=== PATIENT | female | born 1975 | race Two or more races ===

== ENCOUNTER 2019-02-15 18:13 | Inpatient (IN) | payer MEDICAID ==
[~2019-02-15] VITALS: Ht 160 cm; Wt 60.8 kg
[2019-02-15] MEDS ORDERED: METF500T17 PO (19:00)
[2019-02-15] MEDS ORDERED: INSU100V8 SQ (19:00)
[2019-02-15] MEDS ORDERED: LOSA25TA25 PO (19:01)
--- NOTE | 2019-02-15 19:10 | NUR ---
received report from KORI Oconnell
[2019-02-15 19:11] LABS: BASOPHILS # (AUTO) 0.02 x10^3/uL (0-0.1); BASOPHILS % (AUTO) 0 % (0-1); EOSINOPHILS % (AUTO) 3 % (1-7); LYMPHOCYTES # (AUTO) 1.34 x10^3/uL (1-3.4); LYMPHOCYTES % (AUTO) 22 % (22-44); MD NO; MEAN CORPUSCULAR HEMOGLOBIN 24.6 pg (27.0-34.8); MEAN CORPUSCULAR HGB CONC 32.2 g/dL (32.4-35.8); MEAN CORPUSCULAR VOLUME 76.4 fL (80-100); MEAN PLATELET VOLUME 8.1 fL (7.4-10.4); MONOCYTES # (AUTO) 0.44 x10^3/uL (0.2-0.8); MONOCYTES % (AUTO) 7 % (2-9); NEUTROPHILS # (AUTO) 4.14 x10^3/uL (1.8-6.8); NEUTROPHILS % (AUTO) 67 % (42-75); PLATELET COUNT 238 x10^3/uL (130-400); RED BLOOD COUNT 3.22 x10^6/uL (3.82-5.3); RED CELL DISTRIBUTION WIDTH 18.3 % (9.6-15.2)
--- NOTE | 2019-02-15 19:15 | NUR ---
patient to ultrasound.
[2019-02-15 19:23] LABS: ALANINE AMINOTRANSFERASE 16 U/L (12-78); ALBUMIN 2.7 g/dL (3.4-5.0); ANION GAP 6 mmol/L (5-15); CALCIUM 8.1 mg/dL (8.5-10.1); CHLORIDE 113 mmol/L (98-107); CREATININE 1.24 mg/dL (0.55-1.02)
[2019-02-15 19:27] LABS: ALKALINE PHOSPHATASE 54 U/L (45-117); BILIRUBIN,TOTAL 0.3 mg/dL (0.2-1.0); TOTAL PROTEIN 6.6 g/dL (6.4-8.2); TROPONIN I 0.038 ng/mL (0.000-0.045)
[2019-02-15] MEDS ORDERED: FURO-93 PO (19:56)
[2019-02-15] MEDS ORDERED: POTA20PA25 PO ×2 (19:57→23:37)
[2019-02-15] MEDS ORDERED: NITROGLYCERIN OINT 2%, 1GM TP ONE ×2 (20:47→21:00)
[2019-02-15] MEDS ORDERED: FUROSEMIDE 20 MG/2 ML ONE (20:48)
[2019-02-15] MEDS ORDERED: FUROSEMIDE 20 MG/2 ML IV ONE (21:00)
--- NOTE | 2019-02-15 21:06 | NUR ---
patient medicated. crackers and juice provided. admission orders made. bed requested.
--- NOTE | 2019-02-15 21:44 | NUR ---
bed assigned. report to KORI Julio.
[2019-02-15] MEDS ORDERED: ACETAMINOPHEN 325 MG TABLET PO PRN (22:30)
[2019-02-15] MEDS ORDERED: ONDANSETRON ODT 4 MG PO PRN (22:30)
[2019-02-15] MEDS ORDERED: HEPARIN 5,000 UNITS/ML, 1ML SQ SCH (22:30)
[2019-02-15] MEDS ORDERED: DOCUSATE 100 MG CAPSULE PO PRN (22:30)
[2019-02-15] MEDS ORDERED: TEMAZEPAM 15 MG CAPSULE PO PRN (22:30)
[2019-02-15] MEDS ORDERED: LIDODERM 5% PATCH TD PRN (22:30)
[2019-02-15] MEDS ORDERED: GABA600T7 PO (22:42)
[2019-02-15 22:59] VITALS: BP 176/86
[2019-02-15] MEDS: INSULIN GLARGINE 100 UNITS/ML, PEN SQ-INSULIN SCH (23:00)
[2019-02-15] MEDS: GABAPENTIN 300 MG CAPSULE PO SCH (23:51)
[2019-02-16] MEDS: LABETALOL 5 MG/ML SYRINGE IVPush PRN (00:34)
[2019-02-16 00:35] VITALS: BP 178/86
[2019-02-16 00:48] VITALS: BP 142/64
[2019-02-16 01:31] VITALS: BP 148/70
[2019-02-16 01:33] LABS: TROPONIN I 0.044 ng/mL (0.000-0.045)
[2019-02-16] MEDS: INSULIN LISPRO 100 UNITS/ML, PEN SQ-INSULIN SCH ×8 (07:00→20:30)
[2019-02-16] MEDS ORDERED: DEXTROSE 4 GM TAB.CHEW PO PRN (07:00)
[2019-02-16] MEDS ORDERED: DEXTROSE 50%, 50ML SYRINGE IVPush PRN (07:00)
[2019-02-16] MEDS ORDERED: GLUCAGON 1 MG IM PRN (07:00)
[2019-02-16] MEDS ORDERED: FUROSEMIDE 20 MG/2 ML IV SCH (07:30)
[2019-02-16 07:55] LABS: ANION GAP 6 mmol/L (5-15); CHLORIDE 115 mmol/L (98-107); CREATININE 1.23 mg/dL (0.55-1.02)
[2019-02-16 07:59] LABS: TROPONIN I 0.033 ng/mL (0.000-0.045)
[2019-02-16] MEDS ORDERED: LOSARTAN 25MG TABLET PO SCH (09:00)
[2019-02-16] MEDS: SODIUM CHLORIDE FLUSH 10ML SYR IVF SCH ×2 (09:00→20:27)
[2019-02-16] MEDS ORDERED: POTASSIUM CHLORIDE 20 MEQ PACKET PO SCH (09:00)
[2019-02-16 09:36] LABS: MEAN CORPUSCULAR HEMOGLOBIN 24.2 pg (27.0-34.8); MEAN CORPUSCULAR HGB CONC 31.8 g/dL (32.4-35.8); MEAN PLATELET VOLUME 8.5 fL (7.4-10.4); PLATELET COUNT 240 x10^3/uL (130-400); RED CELL DISTRIBUTION WIDTH 18.5 % (9.6-15.2)
[2019-02-16 10:15] VITALS: BP 148/64
[2019-02-16] MEDS ORDERED: FUROSEMIDE 20 MG/2 ML IV ONE (11:00)
[2019-02-16 11:08] LABS: BASOPHILS # (AUTO) 0.01 x10^3/uL (0-0.1); BASOPHILS % (AUTO) 0 % (0-1); EOSINOPHILS # (AUTO) 0.14 x10^3/uL (0-0.4); EOSINOPHILS % (AUTO) 3 % (1-7); LYMPHOCYTES # (AUTO) 0.99 x10^3/uL (1-3.4); LYMPHOCYTES % (AUTO) 19 % (22-44); MD MORPH REVIEW ONLY; MONOCYTES # (AUTO) 0.28 x10^3/uL (0.2-0.8); MONOCYTES % (AUTO) 6 % (2-9); NEUTROPHILS # (AUTO) 3.67 x10^3/uL (1.8-6.8); NEUTROPHILS % (AUTO) 72 % (42-75)
[2019-02-16 11:12] LABS: ANISOCYTOSIS 1+; HYPOCHROMIA 1+; MICROCYTOSIS 1+; OVALOCYTES 1+
[2019-02-16 11:13] LABS: <PLATELET ESTIMATE> ADEQUATE; <PLT MORPHOLOGY> NORMAL PLT MORPH; SCHISTOCYTES 1+
[2019-02-16] MEDS: GABAPENTIN 300 MG CAPSULE PO SCH ×3 (11:23→20:27)
[2019-02-16 13:40] VITALS: BP 168/80
[2019-02-16] MEDS: INSULIN GLARGINE 100 UNITS/ML, PEN SQ-INSULIN SCH (20:30)
[2019-02-16 21:08] VITALS: BP 169/81
[2019-02-17 00:46] VITALS: BP 169/86
[2019-02-17 05:25] LABS: % IRON SATURATION 7 % (20-55); ANION GAP 3 mmol/L (5-15); CHLORIDE 114 mmol/L (98-107); CREATININE 1.26 mg/dL (0.55-1.02); IRON LEVEL 20 mcg/dL (50-170); TOTAL IRON BINDING CAPACITY 301 mcg/dL (250-450)
[2019-02-17 05:29] LABS: TRANSFERRIN 239 mg/dL (200-360)
[2019-02-17 06:00] LABS: MEAN CORPUSCULAR HEMOGLOBIN 24.4 pg (27.0-34.8); MEAN CORPUSCULAR HGB CONC 31.9 g/dL (32.4-35.8); MEAN CORPUSCULAR VOLUME 76.4 fL (80-100); MEAN PLATELET VOLUME 8.8 fL (7.4-10.4); PLATELET COUNT 229 x10^3/uL (130-400); RED BLOOD COUNT 2.91 x10^6/uL (3.82-5.3); RED CELL DISTRIBUTION WIDTH 18.2 % (9.6-15.2)
[2019-02-17 06:01] LABS: BASOPHILS # (AUTO) 0.01 x10^3/uL (0-0.1); BASOPHILS % (AUTO) 0 % (0-1); EOSINOPHILS # (AUTO) 0.17 x10^3/uL (0-0.4); EOSINOPHILS % (AUTO) 3 % (1-7); LYMPHOCYTES # (AUTO) 1.47 x10^3/uL (1-3.4); LYMPHOCYTES % (AUTO) 29 % (22-44); MD SCAN; MONOCYTES % (AUTO) 10 % (2-9); NEUTROPHILS # (AUTO) 2.96 x10^3/uL (1.8-6.8); NEUTROPHILS % (AUTO) 58 % (42-75)
[2019-02-17] MEDS ORDERED: SODIUM POLYSTYRENE SULFONATE ORAL SUSP PO ONE (07:00)
[2019-02-17] MEDS: INSULIN LISPRO 100 UNITS/ML, PEN SQ-INSULIN SCH ×3 (07:00→12:05)
[2019-02-17] MEDS ORDERED: FUROSEMIDE 20 MG/2 ML IV SCH (07:30)
[2019-02-17 07:39] VITALS: BP 166/86
[2019-02-17] MEDS ORDERED: REGADENOSON 0.4 MG/5 ML SYRINGE ONE (08:53)
[2019-02-17] MEDS ORDERED: AMLODIPINE 10 MG TAB PO SCH (09:00)
[2019-02-17] MEDS: GABAPENTIN 300 MG CAPSULE PO SCH (11:29)
[2019-02-17] MEDS: SODIUM CHLORIDE FLUSH 10ML SYR IVF SCH (11:29)
[2019-02-17 12:18] VITALS: BP 184/85
[2019-02-17] MEDS: LABETALOL 5 MG/ML SYRINGE IVPush PRN (13:02)
[2019-02-17 14:27] LABS: ANION GAP 8 mmol/L (5-15); CALCIUM 8.1 mg/dL (8.5-10.1); CHLORIDE 110 mmol/L (98-107); CREATININE 1.19 mg/dL (0.55-1.02)
[2019-02-17] MEDS ORDERED: INSU100V8 SQ (15:38)
[2019-02-17] MEDS ORDERED: CHLO25TA PO (15:38)
[2019-02-17] MEDS ORDERED: AMLO10TA8 PO (15:38)
[2019-02-17] MEDS ORDERED: FERR324T5 PO (15:38)
[2019-02-17] MEDS ORDERED: INSULIN GLARGINE 100 UNITS/ML, PEN SQ-INSULIN SCH (21:00)
[2019-02-18] MEDS ORDERED: CHLORTHALIDONE 25 MG TABLET PO SCH (09:00)
== END 2019-02-17 17:01 | disposition home or self-care (01) | DRG 300 ==
LOC: ED 19:46 → MERGE 19:46 → EDIP 21:03 → 5SO 22:02
PROVIDERS: ADMIT Family Medicine; ATTEND Family Medicine
DX: I87.2 Venous insufficiency (chronic) (peripheral) (principal); N17.9 Acute kidney failure, unspecified; I16.0 Hypertensive urgency; I12.9 Hypertensive chronic kidney disease with stage 1 through stage 4 chronic kidney disease, or unspecified chronic kidney disease; D50.0 Iron deficiency anemia secondary to blood loss (chronic); E11.22 Type 2 diabetes mellitus with diabetic chronic kidney disease; N18.9 Chronic kidney disease, unspecified; E11.40 Type 2 diabetes mellitus with diabetic neuropathy, unspecified; E11.69 Type 2 diabetes mellitus with other specified complication; E78.5 Hyperlipidemia, unspecified; N28.89 Other specified disorders of kidney and ureter; E87.5 Hyperkalemia; K59.00 Constipation, unspecified; Z79.4 Long term (current) use of insulin; Z91.14 Patient's other noncompliance with medication regimen; Z87.891 Personal history of nicotine dependence; Z83.3 Family history of diabetes mellitus
CPT/HCPCS: 36415; 71046; 76770; 78452; 80048; 80053; 82728; 82962; 83540; 83550; 83880; 84466; 84484; 84703; 85014; 85018; 85025; 93005; 93017; 93306; 93970; 96374; 99291; G0378; J1644; J2785; A9502; C9898; J1815; J1940

== ENCOUNTER 2019-05-23 23:53 | Inpatient (IN) | payer MEDICAID ==
[~2019-05-23] VITALS: Ht 160 cm; Wt 61.0 kg
[~2019-05-23 23:53] MED LIST: AMLO10TA8 PO; CHLO25TA PO; FERR324T5 PO; FURO-93 PO; GABA600T7 PO; INSU100V8 SQ; LOSA25TA25 PO; METF500T17 PO; POTA20PA25 PO
--- NOTE | 2019-05-24 00:16 | NUR ---
PT STATES THAT SHE IS HAVING LEFT SIDED BURNING AND TINGLING IN HER LEFT LEG SINCE MONDAY. PT DENIES ANY TRAUMA OR KNOWN INJURIES. MONITORS APPLIED, SIDERAILS UP X2, CALL LIGHT WITHIN REACH
[2019-05-24] MEDS ORDERED: ATOR10TA9 PO (00:23)
[2019-05-24] MEDS ORDERED: ACETAMINOPHEN 325 MG TABLET ONE (00:30)
[2019-05-24] MEDS ORDERED: ACETAMINOPHEN 325 MG TABLET PO ONE (00:30)
--- NOTE | 2019-05-24 00:35 | NUR ---
PT MEDICATED PER MAR
[2019-05-24 00:50] LABS: BASOPHILS # (AUTO) 0.02 x10^3/uL (0-0.1); BASOPHILS % (AUTO) 0 % (0-1); EOSINOPHILS # (AUTO) 0.18 x10^3/uL (0-0.4); EOSINOPHILS % (AUTO) 3 % (1-7); LYMPHOCYTES # (AUTO) 0.88 x10^3/uL (1-3.4); LYMPHOCYTES % (AUTO) 14 % (22-44); MD NO; MEAN CORPUSCULAR HEMOGLOBIN 30.6 pg (27.0-34.8); MEAN CORPUSCULAR HGB CONC 33.8 g/dL (32.4-35.8); MEAN CORPUSCULAR VOLUME 90.5 fL (80-100); MEAN PLATELET VOLUME 8.4 fL (7.4-10.4); MONOCYTES # (AUTO) 0.34 x10^3/uL (0.2-0.8); MONOCYTES % (AUTO) 5 % (2-9); NEUTROPHILS # (AUTO) 5.03 x10^3/uL (1.8-6.8); NEUTROPHILS % (AUTO) 78 % (42-75); PLATELET COUNT 222 x10^3/uL (130-400); RED BLOOD COUNT 3.45 x10^6/uL (3.82-5.3); RED CELL DISTRIBUTION WIDTH 14.4 % (9.6-15.2)
[2019-05-24 00:54] LABS: INTERNATIONAL NORMALIZED RATIO 0.87 (0.93-1.1); PROTHROMBIN TIME 9.2 Seconds (9.6-11.5)
[2019-05-24 00:56] LABS: ALANINE AMINOTRANSFERASE 15 U/L (12-78); ALBUMIN 2.2 g/dL (3.4-5.0); ANION GAP 8 mmol/L (5-15); CALCIUM 8.1 mg/dL (8.5-10.1); CHLORIDE 101 mmol/L (98-107); CREATININE 3.19 mg/dL (0.55-1.02)
[2019-05-24 01:00] LABS: ALKALINE PHOSPHATASE 75 U/L (45-117); BILIRUBIN,TOTAL 0.2 mg/dL (0.2-1.0); TOTAL PROTEIN 5.9 g/dL (6.4-8.2)
--- NOTE | 2019-05-24 01:07 | NUR ---
Break RN: back from X ray. urine sample obtained and sent to lab.
--- NOTE | 2019-05-24 01:08 | NUR ---
ERP at bedside.
[2019-05-24 01:14] LABS: CULTURE INDICATED? YES; HCG UR SG 1.014 (1.003-1.030); MICROSCOPIC AUTO
[2019-05-24] MEDS ORDERED: NITROGLYCERIN OINT 2%, 1GM TP ONE ×2 (01:20→01:30)
--- NOTE | 2019-05-24 01:22 | NUR ---
IV placed. IVF hung. nitro given.
[2019-05-24] MEDS ORDERED: LABETALOL 5MG/ML, 20ML ONE (01:29)
[2019-05-24] MEDS ORDERED: CEFTRIAXONE PMX 1GM/50ML 50 ML ONE (01:29)
[2019-05-24] MEDS ORDERED: CEFTRIAXONE PMX 1GM/50ML 50 ML IVPB ONE (01:30)
[2019-05-24] MEDS ORDERED: SODIUM CHLORIDE FLUSH 10ML SYR IVF ONE (01:30)
[2019-05-24] MEDS ORDERED: LABETALOL 5MG/ML, 20ML IVPush ONE (01:30)
[2019-05-24] MEDS ORDERED: SODIUM CHLORIDE 0.9% 1,000ML IVBOLUS ONE (01:30)
[2019-05-24 01:35] LABS: TROPONIN I < 0.015 ng/mL (0.000-0.045)
--- NOTE | 2019-05-24 01:40 | NUR ---
pt medicated per mar
--- NOTE | 2019-05-24 01:43 | NUR ---
pt to ultrasound
[2019-05-24] MEDS ORDERED: SODIUM CHLORIDE 0.9% 1,000 ML IV ONE (01:50)
[2019-05-24] MEDS ORDERED: INSULIN REGULAR 100 UNITS/ML, 3ML VIAL SQ-INSULIN SCH (02:00)
[2019-05-24] MEDS ORDERED: INSULIN SINGLE DOSE, ER SQ-INSULIN ONE (02:32)
[2019-05-24] MEDS ORDERED: ACETAMINOPHEN 325 MG TABLET PO PRN (03:00)
[2019-05-24] MEDS: SODIUM CHLORIDE 0.9% 1,000 ML IV SCH ×3 (03:07→23:34)
[2019-05-24 03:16] VITALS: BP 165/80
[2019-05-24 03:40] LABS: HEMOGLOBIN A1C 9.1 % (4.2-6.3)
[2019-05-24] MEDS: INSULIN GLARGINE 100 UNITS/ML, PEN SQ-INSULIN SCH ×2 (03:54→20:10)
[2019-05-24] MEDS: INSULIN LISPRO 100 UNITS/ML, PEN SQ-INSULIN SCH ×4 (07:00→20:51)
[2019-05-24 07:05] VITALS: BP 150/71
[2019-05-24 07:56] LABS: CREATININE,URINE RANDOM 24.4 mg/dL
[2019-05-24] MEDS: FERROUS SULFATE 325 MG TABLET PO SCH ×2 (07:59→16:40)
[2019-05-24] MEDS: GABAPENTIN 300 MG CAPSULE PO SCH ×3 (07:59→20:10)
[2019-05-24] MEDS: AMLODIPINE 10 MG TAB PO SCH (07:59)
[2019-05-24] MEDS ORDERED: CHLORTHALIDONE 25 MG TABLET PO SCH (09:00)
[2019-05-24 09:23] LABS: HCT (SEDRATE) 29.9 % (34.6-47.8)
[2019-05-24 09:35] LABS: ANION GAP 5 mmol/L (5-15); CALCIUM 7.9 mg/dL (8.5-10.1); CHLORIDE 113 mmol/L (98-107); CREATININE 2.61 mg/dL (0.55-1.02)
[2019-05-24 09:40] LABS: TROPONIN I < 0.015 ng/mL (0.000-0.045)
[2019-05-24] MEDS: HEPARIN 5,000 UNITS/ML, 1ML SQ SCH ×2 (11:27→23:34)
[2019-05-24 13:45] LABS: AMPHETAMINE SCREEN, URINE Negative (Negative); BARBITURATE SCREEN, URINE Negative (Negative); BENZODIAZEPINE SCREEN, URINE Negative (Negative); CANNABINOID SCREEN, URINE Negative (Negative); COCAINE SCREEN, URINE Negative (Negative); METHADONE SCREEN, URINE Negative (Negative); OPIATE SCREEN, URINE Negative (Negative)
[2019-05-24 13:46] VITALS: BP 161/86
[2019-05-24] MEDS ORDERED: HYDROcodone/APAP 5/325 TABLET PO PRN (16:30)
[2019-05-24] MEDS: HYDROcodone/APAP 5/325 TABLET PO PRN ×2 (16:40→23:38)
[2019-05-24] MEDS ORDERED: GADOBUTROL 7.5 MMOL/7.5 ML PFS ONE (19:42)
[2019-05-24 19:50] VITALS: BP 156/82
[2019-05-24] MEDS: ATORVASTATIN 10 MG TABLET PO SCH (20:09)
[2019-05-25 01:23] VITALS: BP 163/87
[2019-05-25 04:54] LABS: BASOPHILS # (AUTO) 0.02 x10^3/uL (0-0.1); BASOPHILS % (AUTO) 0 % (0-1); EOSINOPHILS # (AUTO) 0.19 x10^3/uL (0-0.4); EOSINOPHILS % (AUTO) 4 % (1-7); LYMPHOCYTES # (AUTO) 1.26 x10^3/uL (1-3.4); LYMPHOCYTES % (AUTO) 26 % (22-44); MD NO; MEAN CORPUSCULAR HEMOGLOBIN 29.5 pg (27.0-34.8); MEAN CORPUSCULAR HGB CONC 32.4 g/dL (32.4-35.8); MEAN PLATELET VOLUME 8.1 fL (7.4-10.4); MONOCYTES # (AUTO) 0.27 x10^3/uL (0.2-0.8); MONOCYTES % (AUTO) 6 % (2-9); NEUTROPHILS # (AUTO) 3.12 x10^3/uL (1.8-6.8); NEUTROPHILS % (AUTO) 64 % (42-75); PLATELET COUNT 198 x10^3/uL (130-400); RED BLOOD COUNT 3.15 x10^6/uL (3.82-5.3); RED CELL DISTRIBUTION WIDTH 14.5 % (9.6-15.2)
[2019-05-25 05:07] LABS: CHLORIDE 116 mmol/L (98-107)
[2019-05-25 05:23] LABS: ANION GAP 6 mmol/L (5-15); CALCIUM 7.7 mg/dL (8.5-10.1); CREATINE KINASE, TOTAL 169 U/L (26-192); CREATININE 2.07 mg/dL (0.55-1.02)
[2019-05-25] MEDS: INSULIN LISPRO 100 UNITS/ML, PEN SQ-INSULIN SCH ×4 (07:00→20:15)
[2019-05-25 07:10] VITALS: BP 175/88
[2019-05-25] MEDS ORDERED: CEFTRIAXONE 1,000 MG IM SCH (09:00)
[2019-05-25] MEDS: FERROUS SULFATE 325 MG TABLET PO SCH ×2 (09:41→16:29)
[2019-05-25] MEDS: AMLODIPINE 10 MG TAB PO SCH (09:42)
[2019-05-25] MEDS: ENALAPRIL 2.5MG TABLET PO SCH (09:42)
[2019-05-25] MEDS: GABAPENTIN 300 MG CAPSULE PO SCH ×3 (09:42→20:14)
[2019-05-25] MEDS: CEFTRIAXONE PMX 1GM/50ML 50 ML IV SCH (09:42)
[2019-05-25] MEDS: HYDROcodone/APAP 5/325 TABLET PO PRN (11:02)
[2019-05-25] MEDS: DULOXETINE 30 MG CAPSULE.DR PO SCH (12:34)
[2019-05-25] MEDS: HEPARIN 5,000 UNITS/ML, 1ML SQ SCH ×2 (12:34→23:30)
[2019-05-25 12:52] VITALS: BP 182/94
[2019-05-25 13:57] VITALS: BP 157/82
[2019-05-25] MEDS: ONDANSETRON 2MG/ML, 2ML IVPush PRN ×2 (16:21→20:48)
[2019-05-25] MEDS: ATORVASTATIN 10 MG TABLET PO SCH (20:14)
[2019-05-25] MEDS: INSULIN GLARGINE 100 UNITS/ML, PEN SQ-INSULIN SCH (20:15)
[2019-05-25 21:48] VITALS: BP 175/92
[2019-05-26] MEDS: HYDROcodone/APAP 5/325 TABLET PO PRN (00:11)
[2019-05-26 02:40] VITALS: BP 130/64
[2019-05-26 05:28] LABS: BASOPHILS # (AUTO) 0.03 x10^3/uL (0-0.1); BASOPHILS % (AUTO) 1 % (0-1); EOSINOPHILS # (AUTO) 0.19 x10^3/uL (0-0.4); EOSINOPHILS % (AUTO) 4 % (1-7); LYMPHOCYTES # (AUTO) 1.49 x10^3/uL (1-3.4); LYMPHOCYTES % (AUTO) 28 % (22-44); MD NO; MEAN CORPUSCULAR HEMOGLOBIN 29.4 pg (27.0-34.8); MEAN CORPUSCULAR HGB CONC 32.6 g/dL (32.4-35.8); MONOCYTES # (AUTO) 0.27 x10^3/uL (0.2-0.8); MONOCYTES % (AUTO) 5 % (2-9); NEUTROPHILS # (AUTO) 3.31 x10^3/uL (1.8-6.8); NEUTROPHILS % (AUTO) 63 % (42-75); PLATELET COUNT 212 x10^3/uL (130-400); RED BLOOD COUNT 3.01 x10^6/uL (3.82-5.3); RED CELL DISTRIBUTION WIDTH 14.6 % (9.6-15.2)
[2019-05-26 05:39] LABS: ANION GAP 7 mmol/L (5-15); CHLORIDE 113 mmol/L (98-107)
[2019-05-26 05:41] LABS: CREATININE 1.84 mg/dL (0.55-1.02)
[2019-05-26] MEDS: INSULIN LISPRO 100 UNITS/ML, PEN SQ-INSULIN SCH ×2 (07:00→11:36)
[2019-05-26 07:15] VITALS: BP 166/74
[2019-05-26] MEDS: AMLODIPINE 10 MG TAB PO SCH (08:27)
[2019-05-26] MEDS: GABAPENTIN 300 MG CAPSULE PO SCH (08:28)
[2019-05-26] MEDS: CEFTRIAXONE PMX 1GM/50ML 50 ML IV SCH (08:28)
[2019-05-26] MEDS: FERROUS SULFATE 325 MG TABLET PO SCH (08:28)
[2019-05-26] MEDS: ENALAPRIL 2.5MG TABLET PO SCH (08:28)
[2019-05-26] MEDS: DULOXETINE 30 MG CAPSULE.DR PO SCH (08:28)
[2019-05-26] MEDS: HEPARIN 5,000 UNITS/ML, 1ML SQ SCH (11:30)
[2019-05-26 13:40] VITALS: BP 162/87
[2019-05-26] MEDS ORDERED: DULO30CA2 PO (15:49)
[2019-05-26] MEDS ORDERED: CEPH-368 PO (15:49)
[2019-05-26] MEDS ORDERED: ENAL2.5T PO (15:49)
== END 2019-05-26 17:26 | disposition home or self-care (01) | DRG 74 ==
LOC: ED 05-24 00:30 → EDIP 05-24 01:59 → 4EST 05-24 03:08
PROVIDERS: ADMIT Internal Medicine; ATTEND Internal Medicine
DX: E11.40 Type 2 diabetes mellitus with diabetic neuropathy, unspecified (principal); I13.0 Hypertensive heart and chronic kidney disease with heart failure and stage 1 through stage 4 chronic kidney disease, or unspecified chronic kidney disease; N17.9 Acute kidney failure, unspecified; N12 Tubulo-interstitial nephritis, not specified as acute or chronic; E11.65 Type 2 diabetes mellitus with hyperglycemia; R53.1 Weakness; N18.9 Chronic kidney disease, unspecified; I16.0 Hypertensive urgency; B96.1 Klebsiella pneumoniae [K. pneumoniae] as the cause of diseases classified elsewhere; E11.21 Type 2 diabetes mellitus with diabetic nephropathy; E11.22 Type 2 diabetes mellitus with diabetic chronic kidney disease; E78.5 Hyperlipidemia, unspecified; I50.9 Heart failure, unspecified; M54.16 Radiculopathy, lumbar region; N28.1 Cyst of kidney, acquired; Z79.4 Long term (current) use of insulin; Z83.3 Family history of diabetes mellitus; Z98.891 History of uterine scar from previous surgery
CPT/HCPCS: 36415; 71045; 72146; 72148; 72149; 72192; 76770; 80048; 80053; 80307; 81001; 81025; 82550; 82570; 82962; 83036; 83605; 83880; 84300; 84443; 84484; 85025; 85610; 85651; 85730; 86140; 87040; 87077; 87086; 87186; 93005; 96374; 99291; A9585; G0378; J0696; J1644; J2405; J1815; J7030

== ENCOUNTER 2019-10-21 11:02 | Emergency (ER) | payer MEDICAID ==
[~2019-10-21] VITALS: Ht 162.6 cm; Wt 52.9 kg
[~2019-10-21 11:02] MED LIST changes: +ATOR10TA9 PO; +CEPH-368 PO; +DULO30CA2 PO; +ENAL2.5T PO
[2019-10-21] MEDS ORDERED: SODIUM CHLORIDE FLUSH 10ML SYR IVF ONE ×2 (11:30→12:30)
[2019-10-21 11:54] LABS: BASOPHILS # (AUTO) 0.02 x10^3/uL (0-0.1); BASOPHILS % (AUTO) 0 % (0-1); EOSINOPHILS # (AUTO) 0.05 x10^3/uL (0-0.4); EOSINOPHILS % (AUTO) 1 % (1-7); LYMPHOCYTES # (AUTO) 1.09 x10^3/uL (1-3.4); LYMPHOCYTES % (AUTO) 17 % (22-44); MD NO; MEAN CORPUSCULAR HEMOGLOBIN 30.2 pg (27.0-34.8); MEAN CORPUSCULAR VOLUME 91.5 fL (80-100); MEAN PLATELET VOLUME 8.1 fL (7.4-10.4); MONOCYTES # (AUTO) 0.25 x10^3/uL (0.2-0.8); MONOCYTES % (AUTO) 4 % (2-9); NEUTROPHILS # (AUTO) 5.06 x10^3/uL (1.8-6.8); NEUTROPHILS % (AUTO) 78 % (42-75); PH, VENOUS 7.365 pH (7.320-7.420); PLATELET COUNT 280 x10^3/uL (130-400); RED BLOOD COUNT 3.97 x10^6/uL (3.82-5.3); RED CELL DISTRIBUTION WIDTH 13.3 % (9.6-15.2)
[2019-10-21 11:56] LABS: FIO2 ROOM AIR %
--- NOTE | 2019-10-21 12:00 | NUR ---
PT HERE WITH C.O NAUSEA/VOMITTING X 1 WEEK. PT STATES NO ABDOMINAL PAIN. PT AAO X 4, NAD, ROOM AIR, DRESSED IN GOWN AND ON MONITOR. PT STATES HX DM2 AND CONTROLLED WITH INSULIN BUT FSBG AT HOME 420 AND FSBG HERE 220. PIV ESTABLISHED AND LABS DRAWN. CALL LIGHT WITHIN REACH AND AT BEDSIDE.
[2019-10-21] MEDS ORDERED: METOCLOPRAMIDE 5 MG/ML, 2ML ONE (12:11)
--- NOTE | 2019-10-21 12:14 | NUR ---
PT MEDICATED PER ORDER. PT TO XRAY.
--- NOTE | 2019-10-21 12:15 | NUR ---
PT BP 20S, MD AWARE. Addendum: 10/21/19 at 1245 marilee MEZA SBP 200S
[2019-10-21 12:16] LABS: ALBUMIN 2.4 g/dL (3.4-5.0); ANION GAP 6 mmol/L (5-15); CALCIUM 8.5 mg/dL (8.5-10.1); CHLORIDE 106 mmol/L (98-107)
[2019-10-21 12:19] LABS: ALANINE AMINOTRANSFERASE 25 U/L (12-78); ALKALINE PHOSPHATASE 76 U/L (45-117); BILIRUBIN,TOTAL 0.3 mg/dL (0.2-1.0); CREATININE 1.43 mg/dL (0.55-1.02); TOTAL PROTEIN 6.5 g/dL (6.4-8.2)
[2019-10-21] MEDS ORDERED: METOCLOPRAMIDE 5 MG/ML, 2ML IVPush ONE (12:30)
[2019-10-21] MEDS ORDERED: SODIUM CHLORIDE 0.9% 1,000ML IVBOLUS ONE (12:30)
--- NOTE | 2019-10-21 12:42 | NUR ---
PT BACK FROM XRAY, EDUCATION PROVIDED ON NEED FOR URINE SAMPLE.
[2019-10-21 12:54] LABS: ACETONE, SERUM Trace (10mg/dL) mg/dL (Negative)
--- NOTE | 2019-10-21 13:01 | NUR ---
PT MEDICATED WITH PO MEDS. PT GIVEN ICE WATER FOR PO CHALLENGE.
--- NOTE | 2019-10-21 13:15 | NUR ---
PT TOLERATED PO CHALLENGE. PT AMBULATORY TO RESTROOM WITH NO ASSISTANCE FROM STAFF, UA PROVIDED AND SENT TO LAB.
[2019-10-21 14:08] LABS: HCG UR SG 1.029 (1.003-1.030)
[2019-10-21 14:19] LABS: MICROSCOPIC INDICATED
[2019-10-21 14:22] VITALS: BP 169/81
--- NOTE | 2019-10-21 14:22 | NUR ---
ALL RESULTS BACK AT THIS TIME, CHART UP FOR RECHECK.
[2019-10-21 14:27] LABS: CULTURE INDICATED? NO
--- NOTE | 2019-10-21 15:30 | NUR ---
Patient/Caregiver given discharge instructions and they have confirmed that they understand the instructions. Patient ambulatory with steady gait.
== END 2019-10-21 15:43 | disposition home or self-care (01) ==
LOC: ED 15:00
DX: E11.65 Type 2 diabetes mellitus with hyperglycemia (principal); R11.2 Nausea with vomiting, unspecified; I11.0 Hypertensive heart disease with heart failure; I50.9 Heart failure, unspecified
CPT/HCPCS: 36415; 74021; 80053; 81001; 81025; 82010; 82803; 82962; 85025; 96361; 96374; 99284; J2765; J7030

== ENCOUNTER 2020-03-21 12:56 | Emergency (ER) | payer MEDICAID, OTHER ==
[~2020-03-21] VITALS: Ht 160 cm; Wt 57.3 kg
[2020-03-21 14:14] LABS: ALBUMIN 1.6 g/dL (3.4-5.0); ANION GAP 6 mmol/L (5-15); CHLORIDE 110 mmol/L (98-107); CREATININE 1.92 mg/dL (0.55-1.02)
[2020-03-21 14:57] LABS: MEAN CORPUSCULAR HEMOGLOBIN 25.4 pg (27.0-34.8); MEAN CORPUSCULAR HGB CONC 31.5 g/dL (32.4-35.8); MEAN CORPUSCULAR VOLUME 80.6 fL (80-100); MEAN PLATELET VOLUME 7.4 fL (7.4-10.4); PLATELET COUNT 237 x10^3/uL (130-400); RED BLOOD COUNT 2.95 x10^6/uL (3.82-5.3); RED CELL DISTRIBUTION WIDTH 14.9 % (9.6-15.2)
[2020-03-21 15:16] LABS: BASOPHILS # (AUTO) 0.01 x10^3/uL (0-0.1); BASOPHILS % (AUTO) 0 % (0-1); EOSINOPHILS # (AUTO) 0.12 x10^3/uL (0-0.4); EOSINOPHILS % (AUTO) 2 % (1-7); LYMPHOCYTES # (AUTO) 0.88 x10^3/uL (1-3.4); LYMPHOCYTES % (AUTO) 17 % (22-44); MD SCAN; MONOCYTES # (AUTO) 0.28 x10^3/uL (0.2-0.8); MONOCYTES % (AUTO) 6 % (2-9); NEUTROPHILS # (AUTO) 3.83 x10^3/uL (1.8-6.8); NEUTROPHILS % (AUTO) 75 % (42-75)
--- NOTE | 2020-03-21 15:38 | NUR ---
OPTHAMOLOGY TO SEE PT, RETINAL DILATING DROPS ORDERED FROM PHARMACY
[2020-03-21] MEDS ORDERED: TROPICAMIDE OPHTH 1%, 15ML OP ONE (16:00)
[2020-03-21] MEDS ORDERED: PHENYLEPHRINE OPHTH 2.5%, 2.5ML EACHEYE ONE (16:00)
[2020-03-21 18:06] VITALS: BP 176/79
== END 2020-03-21 18:08 | disposition home or self-care (01) ==
LOC: ED 13:25
DX: H53.132 Sudden visual loss, left eye (principal); H43.12 Vitreous hemorrhage, left eye; D50.0 Iron deficiency anemia secondary to blood loss (chronic); E11.65 Type 2 diabetes mellitus with hyperglycemia; I10 Essential (primary) hypertension; R94.31 Abnormal electrocardiogram [ECG] [EKG]; Z72.9 Problem related to lifestyle, unspecified
CPT/HCPCS: 36415; 70450; 80048; 82040; 85025; 93005; 93880; 99291

== ENCOUNTER 2021-05-31 08:37 | Inpatient (IN) | payer BC, MEDICAID ==
[~2021-05-31] VITALS: Ht 162.6 cm; Wt 58.7 kg
[~2021-05-31 08:37] MED LIST changes: +AMLO-211 PO; -AMLO10TA8 PO; -ENAL2.5T PO; +ENAL2.5T8 PO
--- NOTE | 2021-05-31 09:00 | NUR ---
ERMD AT BEDSIDE FOR EVALUATION.
--- NOTE | 2021-05-31 09:09 | NUR ---
SURGICEL DRESSING REQUESTED FROM OR.
--- NOTE | 2021-05-31 09:14 | NUR ---
PATIENT WALKED BACK FROM TRIAGE WITH CHIEF C/O LEAKING AT DIALYSIS CATHETER SITE. PER PATIENT CATHETER AND LEFT AV FISTULA PLACED 05/27/2021. CATHETER SITE STARTED LEAKING AROUND 0300 THIS MORNING. SOME PAIN NOTED AT SITE. SPOUSE AT BEDSIDE, PT CONNECTED TO MONITOR, VSS, CALL LIGHT WITHIN REACH.
--- NOTE | 2021-05-31 09:27 | NUR ---
SURGICEL DRESSING APPLIED TO DIALYSIS CATHETER SITE, ERMD AT BEDSIDE.
[2021-05-31 10:10] LABS: BASOPHILS % (AUTO) 0 % (0-1); EOSINOPHILS % (AUTO) 3 % (1-7); LYMPHOCYTES % (AUTO) 14 % (22-44); MEAN CORPUSCULAR HEMOGLOBIN 30.8 pg (27.0-34.8); MEAN CORPUSCULAR HGB CONC 33.2 g/dL (32.4-35.8); MONOCYTES % (AUTO) 8 % (2-9); NEUTROPHILS % (AUTO) 75 % (42-75); PLATELET COUNT 121 x10^3/uL (130-400); RED CELL DISTRIBUTION WIDTH 15.4 % (9.6-15.2)
[2021-05-31 10:22] LABS: ANION GAP 14 mmol/L (5-15); CALCIUM 7.3 mg/dL (8.5-10.1); CHLORIDE 108 mmol/L (98-107)
--- NOTE | 2021-05-31 10:22 | NUR ---
PATIENT SITTING IN GURNEY, SITE AROUND DIALYSIS CATHETER BLEEDING STILL, GAUZE IN PLACE, REMOVED GAUZE AND APPLIED NEW GAUZE, ERMD NOTIFIED, NEPHRO PAGED. PATIENT'S VSS, SPOUSE AT BEDSIDE, CALL LIGHT WITHIN REACH.
[2021-05-31 10:23] LABS: CREATININE 6.15 mg/dL (0.55-1.02)
[2021-05-31 10:30] LABS: INTERNATIONAL NORMALIZED RATIO 0.96 (0.93-1.1); PROTHROMBIN TIME 10.3 Seconds (9.6-11.5)
--- NOTE | 2021-05-31 10:30 | NUR ---
FAN BLADE TRUER AT BEDSIDE FOR EVALUATION.
--- NOTE | 2021-05-31 10:44 | NUR ---
XRAY AT BEDSIDE.
--- NOTE | 2021-05-31 10:57 | NUR ---
PRESSURE DRESSING APPLIED PER REQUEST FROM VOCATIONAL TRAINING DIRECTOR WITH FENESTRATED GAUZE AND OPTIFOAM, PATIENT RAISED IN GURNEY TO 90 DEGREES PER ERMD REQUEST.
--- NOTE | 2021-05-31 12:15 | NUR ---
ICE PACK APPLIED TO CLAVICLE AREA PER ROLLWAY MAN REQUEST, ERMD AT BEDSIDE TO EVALUATE BLEEDING OF CATHETER SITE, WILL CONTINUE TO MONITOR BLEEDING PER ERMD'S REQUEST.
--- NOTE | 2021-05-31 12:49 | NUR ---
BEDSIDE REPORT GIVEN TO KORI BRAVO FOR TRANSFER OF PATIENT CARE.
[2021-05-31] MEDS ORDERED: hydrALAzine 20 MG/ML, 1ML IV PRN (13:30)
[2021-05-31] MEDS ORDERED: ACETAMINOPHEN 325 MG TABLET PO PRN (13:30)
--- NOTE | 2021-05-31 14:40 | NUR ---
BP 210/109
[2021-05-31 14:44] VITALS: BP 203/95
[2021-05-31] MEDS: CARVEDILOL 25 MG TABLET PO SCH (15:06)
[2021-05-31] MEDS ORDERED: CARVEDILOL 25 MG TABLET PO ONE (15:30)
[2021-05-31] MEDS: INSULIN LISPRO 100 UNITS/ML, PEN SQ-INSULIN SCH ×2 (16:00→22:21)
[2021-05-31] MEDS: GABAPENTIN 300 MG CAPSULE PO SCH ×2 (17:44→22:02)
[2021-05-31 17:48] VITALS: BP 195/92
[2021-05-31] MEDS ORDERED: INSULIN GLARGINE 100 UNITS/ML, PEN SQ-INSULIN SCH (21:00)
[2021-05-31 21:31] VITALS: BP 174/78
[2021-05-31] MEDS: FERROUS SULFATE 325 MG TABLET PO SCH (22:02)
[2021-05-31] MEDS: ATORVASTATIN 40 MG TABLET PO SCH (22:02)
[2021-05-31] MEDS: OXYMETAZOLINE NASAL SPRAY 0.05%, 15ML NAS SCH (22:35)
[2021-06-01 01:07] VITALS: BP 153/68
[2021-06-01 05:11] LABS: BASOPHILS % (AUTO) 1 % (0-1); EOSINOPHILS % (AUTO) 3 % (1-7); LYMPHOCYTES % (AUTO) 17 % (22-44); MEAN PLATELET VOLUME 7.7 fL (7.4-10.4); MONOCYTES % (AUTO) 8 % (2-9); NEUTROPHILS % (AUTO) 72 % (42-75); PLATELET COUNT 128 x10^3/uL (130-400); RED BLOOD COUNT 2.22 x10^6/uL (3.82-5.3); RED CELL DISTRIBUTION WIDTH 15.2 % (9.6-15.2)
[2021-06-01 05:17] LABS: ALBUMIN 1.7 g/dL (3.4-5.0); ANION GAP 8 mmol/L (5-15); CALCIUM 7.1 mg/dL (8.5-10.1); CHLORIDE 106 mmol/L (98-107)
[2021-06-01 05:21] LABS: % IRON SATURATION 40 % (20-55); ALANINE AMINOTRANSFERASE 18 U/L (12-78); ALKALINE PHOSPHATASE 71 U/L (45-117); BILIRUBIN,TOTAL 0.2 mg/dL (0.2-1.0); CREATININE 4.26 mg/dL (0.55-1.02); IRON LEVEL 89 mcg/dL (50-170); TOTAL IRON BINDING CAPACITY 221 mcg/dL (250-450); TOTAL PROTEIN 5.3 g/dL (6.4-8.2)
[2021-06-01 05:39] LABS: CALCIUM 7.1 mg/dL (8.5-10.1)
[2021-06-01] MEDS: CARVEDILOL 25 MG TABLET PO SCH ×2 (05:53→16:47)
[2021-06-01 06:21] VITALS: BP 145/69
[2021-06-01] MEDS: INSULIN LISPRO 100 UNITS/ML, PEN SQ-INSULIN SCH ×4 (07:00→22:28)
[2021-06-01] MEDS: ONDANSETRON ODT 4 MG PO PRN (08:58)
[2021-06-01] MEDS: GABAPENTIN 300 MG CAPSULE PO SCH ×5 (09:00→20:11)
[2021-06-01] MEDS: FERROUS SULFATE 325 MG TABLET PO SCH ×3 (09:00→20:11)
[2021-06-01] MEDS: OXYMETAZOLINE NASAL SPRAY 0.05%, 15ML NAS SCH ×2 (09:00→20:11)
[2021-06-01] MEDS ORDERED: ARANESP 40 MCG/ML **ESRD SQ SCH (09:00)
[2021-06-01] MEDS ORDERED: ERGOCALCIFEROL 50,000 UNIT CAPSULE PO SCH (09:00)
[2021-06-01 12:05] VITALS: BP 172/73
[2021-06-01 13:01] LABS: BASOPHILS % (AUTO) 0 % (0-1); EOSINOPHILS % (AUTO) 1 % (1-7); LYMPHOCYTES % (AUTO) 8 % (22-44); MEAN CORPUSCULAR HEMOGLOBIN 30.4 pg (27.0-34.8); MEAN CORPUSCULAR HGB CONC 33.6 g/dL (32.4-35.8); MEAN PLATELET VOLUME 7.8 fL (7.4-10.4); MONOCYTES % (AUTO) 5 % (2-9); NEUTROPHILS % (AUTO) 86 % (42-75); PLATELET COUNT 165 x10^3/uL (130-400); RED BLOOD COUNT 2.93 x10^6/uL (3.82-5.3); RED CELL DISTRIBUTION WIDTH 15.4 % (9.6-15.2)
[2021-06-01] MEDS: DULOXETINE 30 MG CAPSULE.DR PO SCH (16:47)
[2021-06-01 19:25] VITALS: BP 133/69
[2021-06-01 20:06] VITALS: BP 149/68
[2021-06-01] MEDS: ATORVASTATIN 40 MG TABLET PO SCH (20:11)
[2021-06-01 23:07] LABS: OCCULT BLOOD POSITIVE (NEGATIVE)
[2021-06-02] VITALS (11 sets, daily range): BP systolic 123–159; BP diastolic 54–77
[2021-06-02] MEDS: ONDANSETRON ODT 4 MG PO PRN (05:27)
[2021-06-02] MEDS: CARVEDILOL 25 MG TABLET PO SCH ×2 (05:27→18:49)
[2021-06-02 05:59] LABS: BASOPHILS % (AUTO) 1 % (0-1); EOSINOPHILS % (AUTO) 2 % (1-7); LYMPHOCYTES % (AUTO) 21 % (22-44); MEAN CORPUSCULAR HEMOGLOBIN 30.9 pg (27.0-34.8); MEAN CORPUSCULAR HGB CONC 33.7 g/dL (32.4-35.8); MEAN PLATELET VOLUME 8.1 fL (7.4-10.4); MONOCYTES % (AUTO) 11 % (2-9); NEUTROPHILS % (AUTO) 66 % (42-75); PLATELET COUNT 106 x10^3/uL (130-400); RED CELL DISTRIBUTION WIDTH 15.7 % (9.6-15.2)
[2021-06-02 06:11] LABS: ALBUMIN 1.8 g/dL (3.4-5.0); ANION GAP 6 mmol/L (5-15); CALCIUM 7.1 mg/dL (8.5-10.1); CHLORIDE 99 mmol/L (98-107)
[2021-06-02 06:15] LABS: ALANINE AMINOTRANSFERASE 17 U/L (12-78); ALKALINE PHOSPHATASE 78 U/L (45-117); BILIRUBIN,TOTAL 0.3 mg/dL (0.2-1.0); CREATININE 4.01 mg/dL (0.55-1.02); TOTAL PROTEIN 5.5 g/dL (6.4-8.2)
[2021-06-02] MEDS: INSULIN LISPRO 100 UNITS/ML, PEN SQ-INSULIN SCH ×4 (07:45→21:13)
[2021-06-02] MEDS: OXYMETAZOLINE NASAL SPRAY 0.05%, 15ML NAS SCH ×2 (09:00→21:12)
[2021-06-02] MEDS: GABAPENTIN 300 MG CAPSULE PO SCH ×3 (09:00→21:13)
[2021-06-02 10:44] LABS: BASOPHILS % (AUTO) 1 % (0-1); EOSINOPHILS % (AUTO) 2 % (1-7); LYMPHOCYTES % (AUTO) 19 % (22-44); MEAN CORPUSCULAR HEMOGLOBIN 30.5 pg (27.0-34.8); MEAN CORPUSCULAR HGB CONC 33.4 g/dL (32.4-35.8); MEAN PLATELET VOLUME 8.2 fL (7.4-10.4); MONOCYTES % (AUTO) 9 % (2-9); NEUTROPHILS % (AUTO) 69 % (42-75); PLATELET COUNT 103 x10^3/uL (130-400); RED BLOOD COUNT 2.24 x10^6/uL (3.82-5.3); RED CELL DISTRIBUTION WIDTH 15.3 % (9.6-15.2)
[2021-06-02] MEDS: FERROUS SULFATE 325 MG TABLET PO SCH ×2 (17:18→21:13)
[2021-06-02] MEDS: DULOXETINE 30 MG CAPSULE.DR PO SCH (17:18)
[2021-06-02] MEDS: ATORVASTATIN 40 MG TABLET PO SCH (21:12)
[2021-06-03 00:06] VITALS: BP 148/75
[2021-06-03 01:07] VITALS: BP 153/78
[2021-06-03 02:08] VITALS: BP 143/67
[2021-06-03 05:48] LABS: BASOPHILS % (AUTO) 0 % (0-1); EOSINOPHILS % (AUTO) 2 % (1-7); LYMPHOCYTES % (AUTO) 15 % (22-44); MEAN PLATELET VOLUME 8.3 fL (7.4-10.4); MONOCYTES % (AUTO) 12 % (2-9); NEUTROPHILS % (AUTO) 72 % (42-75); PLATELET COUNT 110 x10^3/uL (130-400); RED BLOOD COUNT 2.67 x10^6/uL (3.82-5.3); RED CELL DISTRIBUTION WIDTH 14.9 % (9.6-15.2)
[2021-06-03] MEDS: CARVEDILOL 25 MG TABLET PO SCH (05:49)
[2021-06-03 06:00] LABS: CHLORIDE 101 mmol/L (98-107)
[2021-06-03 06:16] LABS: ALANINE AMINOTRANSFERASE 19 U/L (12-78); ALBUMIN 1.9 g/dL (3.4-5.0); ALKALINE PHOSPHATASE 75 U/L (45-117); ANION GAP 5 mmol/L (5-15); CALCIUM 7.4 mg/dL (8.5-10.1); CREATININE 3.69 mg/dL (0.55-1.02); TOTAL PROTEIN 5.6 g/dL (6.4-8.2)
[2021-06-03 06:43] LABS: BILIRUBIN,TOTAL 0.3 mg/dL (0.2-1.0)
[2021-06-03] MEDS: INSULIN LISPRO 100 UNITS/ML, PEN SQ-INSULIN SCH ×2 (07:36→11:52)
[2021-06-03 08:03] VITALS: BP 148/68
[2021-06-03] MEDS: DULOXETINE 30 MG CAPSULE.DR PO SCH (09:00)
[2021-06-03] MEDS: GABAPENTIN 300 MG CAPSULE PO SCH (09:00)
[2021-06-03] MEDS: FERROUS SULFATE 325 MG TABLET PO SCH (09:00)
[2021-06-03] MEDS: OXYMETAZOLINE NASAL SPRAY 0.05%, 15ML NAS SCH (09:01)
[2021-06-03] MEDS ORDERED: ERGO500017 PO (13:10)
[2021-06-03] MEDS ORDERED: CARV25TA12 PO (13:10)
== END 2021-06-03 15:38 | disposition home or self-care (01) | DRG 314 ==
LOC: ED 10:29 → EDIP 12:59 → 3N 14:31
PROVIDERS: ADMIT Hospitalist; ATTEND Family Medicine
PROC: 5A1D70Z Performance of Urinary Filtration, Intermittent, Less than 6 Hours Per Day (ICD-10-PCS; 2021-05-31)
PROC: 5A1D70Z Performance of Urinary Filtration, Intermittent, Less than 6 Hours Per Day (ICD-10-PCS; 2021-06-01)
PROC: 30233N1 Transfusion of Nonautologous Red Blood Cells into Peripheral Vein, Percutaneous Approach (ICD-10-PCS; principal; 2021-06-02)
PROC: 5A1D70Z Performance of Urinary Filtration, Intermittent, Less than 6 Hours Per Day (ICD-10-PCS; 2021-06-02)
DX: T82.838A Hemorrhage due to vascular prosthetic devices, implants and grafts, initial encounter (principal); N18.6 End stage renal disease; I13.2 Hypertensive heart and chronic kidney disease with heart failure and with stage 5 chronic kidney disease, or end stage renal disease; I50.9 Heart failure, unspecified; E11.22 Type 2 diabetes mellitus with diabetic chronic kidney disease; D69.6 Thrombocytopenia, unspecified; D63.8 Anemia in other chronic diseases classified elsewhere; Y84.1 Kidney dialysis as the cause of abnormal reaction of the patient, or of later complication, without mention of misadventure at the time of the procedure; Z79.4 Long term (current) use of insulin; Z99.2 Dependence on renal dialysis; Z82.49 Family history of ischemic heart disease and other diseases of the circulatory system; Z83.3 Family history of diabetes mellitus
CPT/HCPCS: 36415; 71045; 80048; 80053; 82272; 82306; 82310; 82728; 82962; 83540; 83550; 83970; 84100; 85018; 85025; 85610; 86480; 86704; 86706; 86850; 86900; 86923; 87340; 90935; G0378; Q0162; J1815; P9016